=== PATIENT | female | born 1990 | race Caucasian/White ===

== ENCOUNTER → 2016-06-07 | Outpatient (CLI) | payer OTHER ==
--- NOTE | 2016-06-07 11:47 | XR ---
EXAMINATION TYPE: XR shoulder complete LT DATE OF EXAM: 06/07/2016 11:36 AM CLINICAL HISTORY: pain COMPARISON: NONE TECHNIQUE: Three views of the left shoulder are obtained. FINDINGS: There is no acute fracture/dislocation evident. The acromioclavicular and glenohumeral sandee int spaces appear within normal limits. The visualized ribs are intact and unremarkable. IMPRESSION: 1. There is no acute fracture or dislocation. ICD 10 NO FRACTURE, INITIAL EVALUATION
== END | disposition home or self-care (01) ==
LOC: RADXRMAIN 11:19
PROVIDERS: ATTEND Emergency Medicine
DX: S43.402A Unspecified sprain of left shoulder joint, initial encounter (principal); X58.XXXA Exposure to other specified factors, initial encounter

== ENCOUNTER → 2016-07-07 | Outpatient (CLI) | payer BC ==
--- NOTE | 2016-07-07 13:52 | US ---
EXAMINATION TYPE: US pelvic complete DATE OF EXAM: 07/07/2016 1:36 PM COMPARISON: NONE CLINICAL HISTORY: M93.9 ABN UTERINE AND VAGINAL BLEEDING. Irregular bleeding. Pt states having a posi tive test at home, negative test at doctors office. TECHNIQUE: Transabdominal (TA) Date of LMP: 07/06/2016 EXAM MEASUREMENTS: Uterus: 7.9 x 4.1 x 3.4 cm Endometrial Stripe: 0.3 cm Right Ovary: 3.3 x 1.8 x 1.6 cm Left Ovary: 2.9 x 1.4 x 0.9 cm 1. Uterus: Anteverted wnl 2. Endometrium: wnl 3. Right Ovary: Cystic lesion = 1.5 x 1.3 cm 4. Left Ovary: wnl Spectral, color and waveform doppler imaging shows good arterial and venous flow within the ovaries ; there is no evidence for ovarian torsion. 5. Bilateral Adnexa: wnl 6. Posterior cul-de-sac: no free fluid Cervix- wnl IMPRESSION: 1. Right ovarian cyst. Follow-up is recommended
== END | disposition home or self-care (01) ==
LOC: RADUSWWP 13:03
PROVIDERS: ATTEND Physician Assistant
DX: N83.201 Unspecified ovarian cyst, right side (principal); N93.9 Abnormal uterine and vaginal bleeding, unspecified
CPT/HCPCS: 76856

== ENCOUNTER 2016-10-05 11:26 | Emergency (ER) | payer BC ==
[2016-10-05 11:31] VITALS: RESP 18
[2016-10-05 13:11] LABS: Appearance,Urine Clear (Clear); Bacteria,Urine Occasional /hpf; Bilirubin,Urine Negative (Negative); Glucose,Urine (UA) Negative (Negative); Ketones,Urine Negative (Negative); Leukocyte Esterase,Urine Moderate (Negative); Mucus,Urine Rare /hpf; Nitrite,Urine Negative (Negative); Particle Count 1963; Protein,Urine Negative (Negative); RBC,Urine <1 /hpf (0-5); Specific Gravity,Urine 1.006 (1.001-1.035); Squamous Epithelial Cell,Urine 5 /hpf (0-4); UA Billing (MACRO vs. MICRO) MICRO; Urobilinogen,Urine <2.0 mg/dL (<2.0); WBC,Urine 2 /hpf (0-5)
--- NOTE | 2016-10-05 13:40 | ED ---
Female Urogenital HPI - General Chief complaint: Vaginal Bleeding Stated complaint: poss miscarrage Time Seen by Provider: 10/05/16 11:55 Source: patient, RN notes reviewed, old records reviewed Mode of arrival: ambulatory Limitations: no limitations - History of Present Illness Initial comments: Is a 26-year-old female chief complaint of vaginal bleeding for the past day. Patient reports she took a positive test one week ago. Patient reports she had similar symptoms have worsened positive test but then started to bleed approximately 2 months ago. Patient states that this would be her second . Patient states that she has also noticed some abnormal vaginal discharge a few weeks leading up to her . She reports that she does have some lower cramping at this time. She denies any fever or chills , chest pain, shortness of breath. She does have some lower abdominal cramping and radiates towards her back. Last Menstrual Period: 08/29/16 - Related Data Home Medications Medication Instructions Recorded Confirmed No Known Home Medications [No 10/05/16 10/05/16 Known Home Medications] Allergies Allergy/AdvReac Type Severity Reaction Status Date / Time No Known Allergies Allergy Unverified 10/05/16 12:05 Review of Systems ROS Statement: Those systems with pertinent positive or pertinent negative responses have been documented in the HPI. ROS Other: All systems not noted in ROS Statement are negative. Past Medical History Past Medical History: No Reported History History of Any Multi-Drug Resistant Organisms: None Reported Additional Past Surgical History / Comment(s): sinus surg Smoking Status: Current every day smoker Past Alcohol Use History: None Reported Past Drug Use History: None Reported General Exam - General Exam Comments Initial Comments: 26-year-old female. No acute distress. Limitations: no limitations General appearance: alert, in no apparent distress Head exam: Present: atraumatic, normocephalic, normal inspection Eye exam: Present: normal appearance, PERRL, EOMI. Absent: scleral icterus, conjunctival injection, periorbital swelling ENT exam: Present: normal exam, mucous membranes moist Neck exam: Present: normal inspection. Absent: tenderness, meningismus, lymphadenopathy Respiratory exam: Present: normal lung sounds bilaterally. Absent: respiratory distress, wheezes, rales, rhonchi, stridor Cardiovascular Exam: Present: regular rate, normal rhythm, normal heart sounds. Absent: systolic murmur, diastolic murmur, rubs, gallop, clicks GI/Abdominal exam: Present: soft, normal bowel sounds. Absent: distended, tenderness, guarding, rebound, rigid External exam: Present: normal external exam Speculum exam: Present: vaginal bleeding. Absent: normal speculum exam, erythema, vaginal discharge, cervical discharge By manual exam: Present: normal by manual exam. Absent: cervical motion tenderness, adnexal tenderness Extremities exam: Present: normal inspection, full ROM, normal capillary refill. Absent: tenderness, pedal edema, joint swelling, calf tenderness Back exam: Present: normal inspection Neurological exam: Present: alert, oriented X3, CN II-XII intact Course Vital Signs 10/05/16 10/05/16 11:28 14:56 Temperature 98.0 F 97.9 F Pulse Rate 60 68 Respiratory 18 18 Rate Blood Pressure 124/79 126/68 O2 Sat by Pulse 100 98 Oximetry Medical Decision Making - Medical Decision Making 26-year-old female chief complaint vaginal bleeding 1 week after finding out she is . This of the patient's second . Patient received blood work, transvaginal ultrasound. Patient's AB positive blood type. Patient 's hCG level is 113. Patient transvaginal ultrasound showed thickened endometrium, but no IUP noted. Given patient's low hCG level this would make sense. Discussed with the bleeding the patient is likely having an operable miscarriage, and discussed that she is follow-up with her [facility]. Discussed repeating blood work in 2 days. Patient agrees to treatment plan will comply. Return parameters were discussed. - Lab Data Lab Results 10/05/16 10/05/16 10/05/16 Range/Units 12:35 12:50 12:50 HCG, Quant 136.8 mIU/mL Urine Color Light Yellow Urine Appearance Clear (Clear) Urine pH 7.0 (5.0-8.0) Ur Specific [place] 1.006 (1.001-1.035) Urine Protein Negative (Negative) Urine Glucose (UA) Negative (Negative) Urine Ketones Negative (Negative) Urine Blood Small H (Negative) Urine Nitrite Negative (Negative) Urine Bilirubin Negative (Negative) Urine Urobilinogen <2.0 (<2.0) mg/dL Ur Leukocyte Esterase Moderate H (Negative) Urine RBC <1 (0-5) /hpf Urine WBC 2 (0-5) /hpf Ur Squamous Epith Cells 5 H (0-4) /hpf Urine Bacteria Occasional H (None) /hpf Urine Mucus Rare H (None) /hpf C.trachomatis RNA (Not detected) Chlamydia/GC DNA Source N.gonorrhoeae RNA (Not detected) Trichomonas Ag (Rapid) (Negative) Blood Type AB Positive Blood Type Recheck No 10/05/16 10/05/16 Range/Units 14:35 14:35 HCG, Quant mIU/mL Urine Color Urine Appearance (Clear) Urine pH (5.0-8.0) Ur Specific [place] (1.001-1.035) Urine Protein (Negative) Urine Glucose (UA) (Negative) Urine Ketones (Negative) Urine Blood (Negative) Urine Nitrite (Negative) Urine Bilirubin (Negative) Urine Urobilinogen (<2.0) mg/dL Ur Leukocyte Esterase (Negative) Urine RBC (0-5) /hpf Urine WBC (0-5) /hpf Ur Squamous Epith Cells (0-4) /hpf Urine Bacteria (None) /hpf Urine Mucus (None) /hpf C.trachomatis RNA Not detected (Not detected) Chlamydia/GC DNA Source Endocervix N.gonorrhoeae RNA Not detected (Not detected) Trichomonas Ag (Rapid) Negative (Negative) Blood Type Blood Type Recheck - Radiology Data Radiology results: report reviewed No evidence of itching and at this time. No sonographic findings of early would be seen at hCG is 136. There for early IUP, spontaneous or ectopic remain in the differential. Correlation with repeat short term hCG is recommended determine the progression as well as short- term follow-up with pelvic ultrasound. Disposition Clinical Impression: Threatened miscarriage Disposition: HOME SELF-CARE Condition: Good Instructions: Miscarriage (ED) Additional Instructions: Patient advised to repeat her blood work in 2 days. Follow-up with your OB/ [employer]IDE. Return to emergency department if any alarming signs or symptoms occur. Referrals: None,Stated [Primary Care Provider] - 1-2 days Dottie Yu MD [STAFF PHYSICIAN] - 1-2 days Greg Simmons DO [REFERRING] - 1-2 days Time of Disposition: 14:39
--- NOTE | 2016-10-05 14:41 | US ---
EXAMINATION TYPE: US OB <=14 wks transvag DATE OF EXAM: 10/05/2016 COMPARISON: NONE CLINICAL HISTORY: Pain. POSSIBLE MISCARRIAGE EXAM PERFORMED: Transvaginal (TV) and Transabdominal (TA) EXAM MEASUREMENTS: GESTATIONAL AGE / DATING Physician Established: none Dates by LMP: (5 weeks/2 days) EDC: 06/05/2016 Dates by First Scan: no previous Dates by Current Scan for: no IUP MATERNAL ANATOMY Uterus: 4.7 x 4.1 x 8.0 cm Right Ovary: 2.0 x 1.8 x 2.2 cm Left Ovary: 2.5 x 2.0 x 1.9 cm Post CDS / Adnexa: wnl Presence of free fluid: no Presence of corpus luteal cyst: no Presence of subchorionic bleed: no GESTATION / SURVEY IUP: none seen Date of LMP: 08/29/2016 Beta HcG (if available): 136.8 cannot exclude early IUP vs missed AB vs Ectopic IMPRESSION: 1. No evidence of intrauterine at this time. However, no sonographic findings of early preg annamaria would be seen with a beta hCG of 136.8. Therefore early intrauterine , spontaneous abo rtion, or ectopic remain in the differential. Correlation with repeat short-term serial ser um beta hCG is recommended to trend the progression as well as short-term follow-up pelvic ultrasound in 5-7 days.
[2016-10-05] MEDS ORDERED: ACETAMINOPHEN TAB 500 MG TAB PO STA (14:49)
[2016-10-05 14:58] VITALS: BP 126/68; PULSE 68; TEMP 97.9
== END 2016-10-05 14:56 | disposition home or self-care (01) ==
LOC: EC 11:26
DX: O20.0 Threatened abortion (principal); O99.331 Smoking (tobacco) complicating pregnancy, first trimester; F17.200 Nicotine dependence, unspecified, uncomplicated; Z67.30 Type AB blood, Rh positive; Z3A.01 Less than 8 weeks gestation of pregnancy
CPT/HCPCS: 36415; 76801; 76817; 81001; 84702; 86900; 86901; 87070; 87205; 87491; 87591; 87808; 99284

== ENCOUNTER → 2016-10-07 | Outpatient (CLI) | payer BC | END | disposition home or self-care (01) | LOC: LABWHC1 11:33 | PROVIDERS: ATTEND Physician Assistant Medical | DX: O20.0 Threatened abortion (principal); Z3A.00 Weeks of gestation of pregnancy not specified | CPT/HCPCS: 36415; 84702 ==

== ENCOUNTER → 2016-11-15 | Outpatient (CLI) | payer BC ==
--- NOTE | 2016-11-15 13:22 | US ---
EXAMINATION TYPE: US pelvis complete transvag DATE OF EXAM: 11/15/2016 COMPARISON: 10/05/2016 CLINICAL HISTORY: R10.2 Chronic Pelvic Pain. Pt states pelvic pain TECHNIQUE: Transvaginal (TV) and Transabdominal (TA), TV supplemented to visualized ovaries better Date of LMP: 10/29/2016 EXAM MEASUREMENTS: Uterus: 7.4 x 3.3 x 4.5 cm Endometrial Stripe: 0.9 cm Right Ovary: 3.3 x 2.1 x 3.6 cm Left Ovary: 2.2 x 1.8 x 1.8 cm 1. Uterus: Anteverted wnl 2. Endometrium: wnl 3. Right Ovary: Cyst= 2.3 x 1.7 x 2.1 cm 4. Left Ovary: wnl 5. Bilateral Adnexa: wnl 6. Posterior cul-de-sac: wnl IMPRESSION: 1. There is a simple 2.3 cm right ovarian cyst.
== END | disposition home or self-care (01) ==
LOC: RADUSWWP 12:38
PROVIDERS: ATTEND Family Medicine
DX: N83.201 Unspecified ovarian cyst, right side (principal)
CPT/HCPCS: 76830; 76856